=== PATIENT | male | born 1995 | race Caucasian/White ===

== ENCOUNTER 2020-12-03 18:56 | Emergency (ER) | payer OTHER ==
[~2020-12-03] VITALS: Ht 175.3 cm; Wt 81.7 kg
--- NOTE | 2020-12-03 20:49 | RAD ---
CT ABDOMEN+PELVIS WO INDICATION: Reason: LEFT FLANK PAIN STONE STUDY / Spl. Instructions: / History: EXAM: Noncontrast CT of the abdomen and pelvis. Coronal and sagittal reformatted images were perform ed. PQRS compliance statement: One or more of the following individualized dose reduction techniques were utilized for this examinat ion: 1. Automated exposure control 2. Adjustment of the mA and/or kV according to patient size 3. Use of iterative reconstruction technique COMPARISON: None FINDINGS: No free air, free fluid, or fluid collection. Lower chest: The visualized lower lungs are aerated. No pleural or pericardial effusion. ABDOMEN: Liver: The noncontrast liver is homogeneous in attenuation. Gallbladder and biliary: Normal gallbladder without radiopaque stone. Normal caliber bile ducts. Spleen: Normal spleen. Pancreas: The noncontrast pancreas is homogeneous in attenuation without peripancreatic inflammatory changes. Adrenal glands: Normal adrenal glands. Kidneys and ureters: No hydronephrosis. Nonobstructive left renal 2 mm calculus. GI tract: The stomach is decompressed and poorly evaluated. Normal caliber small bowel and colon. Vascular structures: Normal caliber abdominal aorta. Lymph nodes: No lymphadenopathy in the abdomen or pelvis. PELVIS: Genitourinary system: Urinary bladder is partially distended. 2 mm calculus layering dependently with in the bladder SKELETAL STRUCTURES AND SOFT TISSUES: No fracture or destructive lesion in the visualized skeleton. IMPRESSION: 1. Tiny 2 mm calculus resting dependently within the bladder. Consider recently passed stone. 2. No hydronephrosis. Additional nonobstructive left renal 2 mm calculus Electronically signed by: Mike Hubbard MD (12/03/2020 8:46 PM) [facility]
--- NOTE | 2020-12-03 21:14 | PHYS DOC ---
Past History Past Medical History: No Pertinent History Past Surgical History: Tonsillectomy Alcohol Use: Rarely Adult General Chief Complaint Chief Complaint: ABDOMINAL PAIN HPI HPI Patient is a 21-year-old male presents emergency department complaining of a sudden onset left flank pain that he describes as if somebody smacked him in the side with a 2 x 4 at approximately 1800 today. Patient states he was driving down the road talking on his cell phone when the pain hit him. Patient states he broke out in a cold sweat and started vomiting. Patient states that he took ibuprofen for the pain, the pain did not go away so he came to the emergency department. Patient denies seeing any blood in his stools, denies constipation or diarrhea. Patient states that he vomited 3 times seeing food particles without blood in his vomitus. Patient states that his pain was relieved from a 10/10 pain down to a 0/10 pain while giving a urine specimen in the ER. Patient denies any chest pains, shortness of breath, headaches, nasal congestion. Patient denies any other ailments or physical complaints. Review of Systems Review of Systems 14 body systems of review of systems have been reviewed. See HPI for pertinent positives and negative responses, otherwise all other systems are negative, nonpertinent or noncontributory. Current Medications Current Medications Patient states he does not take any [id number] medications nor prescription medications at home. Allergies Allergies Allergies Coded Allergies Type Severity Reaction Last Updated Verified No Known Drug Allergies 12/03/20 No Physical Exam Physical Exam Constitutional: Well developed, well nourished, no acute distress, non-toxic appearance. HENT: Normocephalic, atraumatic, bilateral external ears normal, oropharynx moist, no oral exudates, nose normal. Eyes: PERRLA, EOMI, conjunctiva normal, no discharge. Neck: Normal range of motion, no tenderness, supple, no stridor. Cardiovascular:Heart rate regular rhythm, no murmur Lungs & Thorax: Bilateral breath sounds clear to auscultation Abdomen: Bowel sounds normal, soft, no tenderness, no masses, no pulsatile masses. Skin: Warm, dry, no erythema, no rash. Back: No tenderness, left-sided CVA tenderness exam, no right-sided CVA tenderness elicited. Extremities: No tenderness, no cyanosis, no clubbing, ROM intact, no edema. Neurologic: Alert and oriented X 3, normal motor function, normal sensory function, no focal deficits noted. Psychologic: Affect normal, judgement normal, mood normal. Current Patient Data Vital Signs Vital Signs Date Time Temp Pulse Resp B/P (MAP) Pulse Ox O2 Delivery O2 Flow Rate FiO2 12/03/20 19:17 98.2 78 16 155/106 (122) 99 Room Air EKG EKG [] Radiology/Procedures Radiology/Procedures STATUS: PRE ER ORD. PHYSICIAN: KALA PIERCE APRN REASON: LEFT FLANK PAIN STONE STUDY PROCEDURE: CT ABDOMEN PELVIS WO CONTRAST CT ABDOMEN+PELVIS WO INDICATION: Reason: LEFT FLANK PAIN STONE STUDY / Spl. Instructions: / History: EXAM: Noncontrast CT of the abdomen and pelvis. Coronal and sagittal reformatted images were performed. PQRS compliance statement: One or more of the following individualized dose reduction techniques were utilized for this examination: 1. Automated exposure control 2. Adjustment of the mA and/or kV according to patient size 3. Use of iterative reconstruction technique COMPARISON: None FINDINGS: No free air, free fluid, or fluid collection. Lower chest: The visualized lower lungs are aerated. No pleural or pericardial effusion. ABDOMEN: Liver: The noncontrast liver is homogeneous in attenuation. Gallbladder and biliary: Normal gallbladder without radiopaque stone. Normal caliber bile ducts. Spleen: Normal spleen. Pancreas: The noncontrast pancreas is homogeneous in attenuation without peripancreatic inflammatory changes. Adrenal glands: Normal adrenal glands. Kidneys and ureters: No hydronephrosis. Nonobstructive left renal 2 mm calculus. GI tract: The stomach is decompressed and poorly evaluated. Normal caliber small bowel and colon. Vascular structures: Normal caliber abdominal aorta. Lymph nodes: No lymphadenopathy in the abdomen or pelvis. PELVIS: Genitourinary system: Urinary bladder is partially distended. 2 mm calculus layering dependently within the bladder SKELETAL STRUCTURES AND SOFT TISSUES: No fracture or destructive lesion in the visualized skeleton. IMPRESSION: 1. Tiny 2 mm calculus resting dependently within the bladder. Consider recently passed stone. 2. No hydronephrosis. Additional nonobstructive left renal 2 mm calculus Electronically signed by: Akila Cárdenas MD (12/03/2020 8:46 PM) [facility] DICTATED AND SIGNED BY: AKILA CÁRDENAS MD DATE: 12/03/202039 CC: KALA PIERCE APRN; PCP,UNKNOWN ~MTH0 0 Heart Score Risk Factors: Risk Factors: DM, Current or recent (<one month) smoker, HTN, HLP, family history of CAD, obesity. Risk Scores: Risk Factors: DM, Current or recent (<one month) smoker, HTN, HLP, family history of CAD, obesity. Course & Med Decision Making Course & Med Decision Making Pertinent Labs and Imaging studies reviewed. (See chart for details) 25-year-old male, vital signs reviewed, presented to the emergency department with classic signs and symptoms of a kidney stone. While patient was giving a urine sample, his pain was immediately relieved, a CT abdomen pelvis without contrast was ordered for stone study. Pending results at this time. Upon reexamination of the patient patient remains pain-free, patient states he is not nauseated, CT results were reviewed with the patient and showed a 2 mm calculi resting in his bladder. Discussed with patient that the stone may pass soon. Discussed with patient need to follow-up with primary care physician if it does not pass, or the 2 mm stone that is in his renal calculi does not pass. Patient gave verbal understanding of discharge home instructions, return to ER concerns, patient had no further questions or concerns and was discharged home without incident. Impression: #1 renal calculi Dragon Disclaimer Najma Disclaimer This electronic medical record was generated, in whole or in part, using a voice recognition dictation system. Departure Departure: Impression: Primary Impression: Kidney stone Disposition: 01 DC HOME SELF CARE/HOMELESS Condition: GOOD Referrals: PCP,UNKNOWN (PCP) Patient Instructions: Kidney Stones Additional Instructions: You have been diagnosed with a kidney stone, your kidney stone is 2 mm and has passed into your bladder. It should come out with normal urination in the next day or so, there is one more kidney stone that measures 2 mm in your kidney, this may or may not pass like the first kidney stone did. Please follow-up with your primary care physician soon. Return to the emergency department for worsening symptoms or other concerns. You may take [id number] ibuprofen for pain. EMERGENCY DEPARTMENT GENERAL DISCHARGE INSTRUCTIONS Thank you for coming to [facility] (ED) today and trusting us with you care. We trust that you had a positivie experience in our Emergency Department. If you wish to speak to the department management, you may call the director at [phone]. YOUR FOLLOW UP INSTRUCTIONS ARE FOLLOWS: 1. Do you have a private Doctor? If you do not have a private doctor, please ask for a resource list of physicians or clinics that may be able to assist you with follow up care. 2. The Emergency Physician has interpreted your x-rays. The X-Ray specialist will also review them. If there is a change in the findings, you will be notified in 48 hours when at all possible. 3. A lab test or culture has been done, your results will be reviewed and you will be notified if you need a change in treatment. ADDITIONAL INSTRUCTIONS AND INFORMATION: 1. Your care today has been supervised by a physician who is specially trained in emergency care. Many problems require more than one evaluation for a complete diagnosis and treatment. We recommend that you schedule your follow up appointment as recommended to ensure complete treatment of you illness or injury. If you are unable to obtain follow up care and continue to have a problem, or if your condition worsens, we recommend that you return to the ED. 2. We are not able to safely determine your condition over the phone nor are we able to give sound medical advice over the phone. For these safety reasons, if you call for medical advice we will ask you to come to the ED for further evaluation. 3. If you have any questions regarding these discharge instructions please call the ED at [phone]. SAFETY INFORMATION: In the interest of safety, wellness, and injury prevention; we encourage you to wear your sealbelt, if you smoke; quite smoking, and we encourage family to use a protective helmet for bicycling and other sporting events that present an increased risk for head injury. IF YOUR SYMPTOMS WORSEN OR NEW SYMPTOMS DEVELOP, OR YOU HAVE CONCERNS ABOUT YOUR CONDITION; OR IF YOUR CONDITION WORSENS WHILE YOU ARE WAITING FOR YOUR FOLLOW UP APPOINTMENT; EITHER CONTACT YOUR PRIMARY CARE DOCTOR, THE PHYSICIAN WHOSE NAME AND NUMBER YOU WERE GIVEN, OR RETURN TO THE ED IMMEDIATELY. KALA PIERCE APRN Dec 03, 2020 21:14
[2020-12-03 21:20] LABS: BILIRUBIN,URINE NEG (NEG); CLARITY,URINE CLEAR; COLOR,URINE YELLOW; GLUCOSE,URINE NEG (NEG)
[2020-12-03 21:21] LABS: BACTERIA,URINE 0 /HPF (0-FEW); NITRITE,URINE NEG (NEG); RBC,URINE OCC /HPF (0-2); WBC,URINE 0 /HPF (0-4)
[2020-12-03 21:28] VITALS: BP 121/65
== END 2020-12-03 21:28 | disposition home or self-care (01) ==
LOC: ER 18:56
DX: N20.0 Calculus of kidney (principal); R11.2 Nausea with vomiting, unspecified; R10.9 Unspecified abdominal pain; Z90.89 Acquired absence of other organs
CPT/HCPCS: 74176; 81001; 99284